=== PATIENT | male | born 1990 ===

== ENCOUNTER 2018-07-17 15:13 | Emergency (ER) | payer OTHER ==
[2018-07-17 16:17] VITALS: BP 135/88; RESP 20; TEMP 98.5; O2SAT 98
--- NOTE | 2018-07-17 16:20 | RAD ---
Date of service: 07/17/2018 HISTORY: cough, r/o pneumonia COMPARISON: No prior. TECHNIQUE: Chest PA and lateral FINDINGS: LUNGS: No active pulmonary disease. PLEURA: No significant pleural effusion identified. No pneumothorax apparent. CARDIOVASCULAR: No aortic atherosclerotic calcification present. Normal cardiac size. No pulmonary vascular congestion. OSSEOUS STRUCTURES: No significant abnormalities. VISUALIZED UPPER ABDOMEN: Normal. OTHER FINDINGS: None. IMPRESSION: No active disease.
--- NOTE | 2018-07-17 16:46 | C.PDOC ---
History Of Present Illness 28 year old male with no significant past medical history presents to the emergency department complaining of cough and congestion x 3 days. Cough is productive of white sputum that he states is less today. Associated tactile fever. Has not taken any medication for symptoms. Denies flu vaccine. Denies sick contacts or recent travel. Denies chills, nausea, vomiting, abdominal pain, diarrhea, headache, dizziness, neck pain, back pain, chest pain, shortness of breath, or any other associated symptoms. Time Seen by Provider: 07/17/18 16:00 Chief Complaint (Nursing): Cough, Cold, Congestion History Per: Patient History/Exam Limitations: no limitations Onset/Duration Of Symptoms: Days Current Symptoms Are (Timing): Still Present Sick Contacts (Context): None Associated Symptoms: Cough, Sputum, Nasal Congestion Past Medical History Reviewed: Historical Data, Nursing Documentation, Vital Signs Vital Signs: Last Vital Signs Temp 98.5 F 07/17/18 15:57 Pulse 100 H 07/17/18 15:57 Resp 20 07/17/18 15:57 BP 135/88 07/17/18 15:57 Pulse Ox 98 07/17/18 15:57 JUNIOR Report Viewed: Yes - Medical History PMH: No Chronic Diseases Family History: States: No Known Family Hx - Social History Hx Alcohol Use: No Hx Substance Use: No - Immunization History Hx Tetanus Toxoid Vaccination: No Hx Influenza Vaccination: No Hx Pneumococcal Vaccination: No Review Of Systems Except As Marked, All Systems Reviewed And Found Negative. Constitutional: Positive for: Fever (tactile). Negative for: Chills Eyes: Negative for: Pain, Vision Change ENT: Positive for: Nose Discharge (rhinorrhea), Nose Congestion. Negative for: Ear Pain, Throat Pain Cardiovascular: Negative for: Chest Pain, Palpitations, Light Headedness Respiratory: Positive for: Cough. Negative for: Shortness of Breath, Hemoptysis, SOB with Excertion, Pleuritic Pain, Sputum, Wheezing Gastrointestinal: Negative for: Nausea, Vomiting, Abdominal Pain Musculoskeletal: Negative for: Neck Pain, Back Pain Skin: Positive for: Rash Neurological: Negative for: Weakness, Numbness, Headache, Dizziness Physical Exam - Physical Exam Appears: Well, Non-toxic, No Acute Distress Skin: Normal Color, Warm, Dry Head: Atraumatic, Normacephalic Eye(s): bilateral: Normal Inspection, PERRL, EOMI Ear(s): Bilateral: Normal Nose: Normal Oral Mucosa: Moist Throat: Normal Neck: Normal, Normal ROM, No Midline Cervical Tenderness, No Paracervical Tenderness, No Other (NO meningeal signs) Lymphatic: Normal Exam Cardiovascular: Rhythm Regular Respiratory: Normal Breath Sounds Gastrointestinal/Abdominal: Normal Exam, Bowel Sounds (normoactive), Soft, No Tenderness Back: Normal Inspection, No CVA Tenderness, No Vertebral Tenderness, No Decreased ROM, No Paraspinal Tenderness Extremity: Normal ROM, No Tenderness, No Pedal Edema, No Calf Tenderness, Capillary Refill (<2s), No Swelling Extremity: Bilateral: Atraumatic, No Pedal Edema, Normal Color And Temperature, Normal ROM Pulses: Left Radial: Normal, Right Radial: Normal Neurological/Psych: Oriented x3, Normal Speech, Normal Cognition, Normal Motor, Normal Sensation Gait: Steady ED Course And Treatment O2 Sat by Pulse Oximetry: 98 (RA) Pulse Ox Interpretation: Normal - Other Rad CXR X-Ray: Viewed By Me, Read By Radiologist Interpretation: Date of service: 07/17/2018. HISTORY: cough, r/o pneumonia. COMPARISON: No prior. TECHNIQUE: Chest PA and lateral. FINDINGS: LUNGS: No active pulmonary disease. PLEURA: No significant pleural effusion identified. No pneumothorax apparent. CARDIOVASCULAR: No aortic atherosclerotic calcification present. Normal cardiac size. No pulmonary vascular congestion. OSSEOUS STRUCTURES: No significant abnormalities. VISUALIZED UPPER ABDOMEN: Normal. OTHER FINDINGS: None. IMPRESSION: No active disease. Medical Decision Making Medical Decision Making: Initial Plan: * CXR * Rapid Flu Patient very well appearing on initial exam, in no acute respiratory distress. Although appears anxious about daughter. Reports no pain. Speaking in full sentences without difficulty. Diagnostic testing results and plan of care discussed with patient. Strict instructions given regarding prescription use, importance of followup, and signs/symptoms to return to ER including or any other new/worsening symptoms. Pt verbalized understanding of discussion. Patient is A&Ox3, ambulating with steady gait, with vital signs stable for discharge. Disposition - Disposition Referrals: [facility] [Outside] Disposition: HOME/ ROUTINE Disposition Time: 16:50 Condition: STABLE Additional Instructions: Increase fluids. Rest, no strenuous activity Flonase 2 sprays each nostril daily Cough medicine every 8 hours as needed for cough Followup with primary within 2 days Return to ER with any new/worsening symptoms Prescriptions: Benzonatate [Tessalon Perle] 100 mg PO Q8H PRN #15 capsule PRN Reason: Cough Fluticasone Propionate [Flonase] 2 spr NS DAILY #1 bottle Instructions: Upper Respiratory Infection (ED) Forms: General Discharge Instructions, [facility] ([place]), Work Excuse - Clinical Impression Clinical Impression: Upper respiratory infection
[2018-07-17 16:50] VITALS: PULSE 94
== END 2018-07-17 16:52 | disposition home or self-care (01) ==
LOC: C.ER 15:13
DX: J06.9 Acute upper respiratory infection, unspecified (principal)